=== PATIENT | female | born 1935 | race Caucasian/White ===

== ENCOUNTER 2017-02-28 21:31 | Emergency (ER) | payer MEDICARE ==
[~2017-02-28] VITALS: Ht 154.9 cm; Wt 48.1 kg
[2017-02-28] MEDS ORDERED: POTASSIUM CL 10MEQ ER TABLETS (22:04)
[2017-02-28] MEDS ORDERED: AMLODIPINE BESYLATE 5MG TABLET (22:04)
[2017-02-28] MEDS ORDERED: PROAIR HFA ORAL INH (200 PFS) (22:04)
[2017-02-28] MEDS ORDERED: HYDROCODONE/ACETAMINOPHEN 10-3 (22:04)
--- NOTE | 2017-03-01 01:51 | NUR ---
Patient discharged to home in stable conditon. Written and verbal after care instructions given. Patient verbalizes understanding of instructions.
== END 2017-03-01 01:52 | disposition home or self-care (01) ==
LOC: ER 21:38
DX: S42.292A Other displaced fracture of upper end of left humerus, initial encounter for closed fracture (principal); S93.402A Sprain of unspecified ligament of left ankle, initial encounter; I10 Essential (primary) hypertension; J44.9 Chronic obstructive pulmonary disease, unspecified; G56.03 Carpal tunnel syndrome, bilateral upper limbs; W18.30XA Fall on same level, unspecified, initial encounter; Y93.89 Activity, other specified; Y92.9 Unspecified place or not applicable; Y99.9 Unspecified external cause status
CPT/HCPCS: 71010; 72100; 72170; 73020; 73130; 73610; 73630; A4663

== ENCOUNTER 2023-05-13 21:58 | Inpatient (IN) | payer MEDICARE ==
[~2023-05-13] VITALS: Ht 154.9 cm; Wt 47.6 kg
[~2023-05-13 21:58] MED LIST: AMLODIPINE BESYLATE 5MG TABLET; HYDROCODONE/ACETAMINOPHEN 10-3; POTASSIUM CL 10MEQ ER TABLETS; PROAIR HFA ORAL INH (200 PFS)
[2023-05-13] MEDS ORDERED: methylPREDNISolone SOD SUCC 125 MG/2 ML VIAL IV ONE (22:30)
[2023-05-13] MEDS ORDERED: ALBUTEROL SULFATE 2.5 MG/3 ML NEBU NEB ONE (22:30)
[2023-05-13] MEDS ORDERED: IPRATROPIUM BROMIDE 0.5 MG/2.5 ML NEBU NEB ONE (22:30)
[2023-05-13] MEDS ORDERED: IPRATROPIUM BROMIDE 0.5 MG/2.5 ML NEBU ONE (22:31)
[2023-05-13] MEDS ORDERED: ALBUTEROL SULFATE 2.5 MG/3 ML NEBU ONE (22:31)
[2023-05-13 22:35] VITALS: O2SAT 98
[2023-05-13] MEDS ORDERED: methylPREDNISolone SOD SUCC 125 MG/2 ML VIAL ONE (22:43)
[2023-05-13] MEDS ORDERED: levoFLOXacin 750 MG/D5W 150 ML PIGGYBACK IV ONE (22:45)
[2023-05-13 22:49] LABS: ABG BASE EXCESS 2.4 mmol/L (-2.0-2.0); ABG HCO3 25.1 mmol/L (22.0-26.0); ABG PCO2 33.6 mmHg (35.0-48.0); ABG PH 7.491 (7.340-7.440); ABG SITE RIGHT RADIAL; ABG TOTAL HEMOGLOBIN 15.9 G/dL (12.0-16.0); AaDO2 99.6 mmHg; COHb 1.1 % (0.0-3.9); MetHb 0.2 % (0.0-1.5); O2Hb 98.5 % (94.0-97.0)
[2023-05-13] MEDS ORDERED: levoFLOXacin 750MG/D5W 150 ML IV ONE (22:50)
[2023-05-13] MEDS ORDERED: GABA300T25 PO (22:51)
[2023-05-13] MEDS ORDERED: ROSU5TAB PO (22:51)
[2023-05-13] MEDS ORDERED: MELO-105 PO (22:51)
[2023-05-13] MEDS ORDERED: HYDR-3980 PO (22:51)
[2023-05-13] MEDS ORDERED: MONT4GRA2 PO (22:51)
[2023-05-13] MEDS ORDERED: CYAN100T44 IJ (22:51)
[2023-05-13 23:05] LABS: CALCIUM 9.1 mg/dL (8.5-10.1); CARBON DIOXIDE 28 mmol/L (21-32); CHLORIDE 95 mmol/L (98-107); CREATININE 0.9 mg/dL (0.6-1.3); GLUCOSE 136 mg/dL (74-106); POTASSIUM 4.3 mmol/L (3.5-5.1); SODIUM SERUM 133 mmol/L (136-145); UREA NITROGEN, BLOOD 17 mg/dL (7-18)
[2023-05-13 23:06] LABS: BASOPHILS % (AUTO) 0.3 % (0.0-2.0); DIFFERENTIAL COMMENT 0; HEMATOCRIT 44.6 % (31.2-41.9); HEMOGLOBIN 15.2 g/dL (10.9-14.3); LYMPHOCYTES # (AUTO) 0.5 K/uL (0.8-4.8); LYMPHOCYTES % (AUTO) 4.8 % (20.5-51.5); MEAN CORPUSCULAR HEMOGLOBIN 31.3 uug (24.7-32.8); MEAN CORPUSCULAR HGB CONC 34 g/dL (32.3-35.6); MONOCYTES # (AUTO) 1.3 K/uL (0.1-1.30); MONOCYTES % (AUTO) 13.6 % (0.0-11.0); NEUTROPHILS # (AUTO) 7.9 K/uL (1.8-8.9); NEUTROPHILS % (AUTO) 81.3 % (38.5-71.5); PLATELET COUNT (AUTO) 300 K/uL (179-408); RED BLOOD CELL COUNT(AUTO) 4.85 MIL/uL (3.63-4.92); RED CELL DISTRIBUTION WIDTH 13.3 % (12.3-17.7); WHITE BLOOD COUNT (AUTO) 9.7 K/uL (3.8-11.8)
[2023-05-13 23:10] VITALS: O2SAT 99
[2023-05-13] MEDS ORDERED: ENOXAPARIN SODIUM 40 MG/0.4 ML DISP.SYRIN SQ ONE ×2 (23:15→23:38)
[2023-05-13 23:18] LABS: ALANINE AMINOTRANSFERASE 20 U/L (14-59); ALKALINE PHOSPHATASE 125 U/L (50-136); ASPARTATE AMINOTRANSFERASE 32 U/L (15-37); BILIRUBIN,DIRECT 0.5 mg/dL (0.0-0.2); NT-PRO BNP 1054 pg/mL (0-125)
[2023-05-13 23:35] VITALS: O2SAT 99
[2023-05-14] MEDS ORDERED: ACETAMINOPHEN 325 MG TABLET PO PRN (00:15)
[2023-05-14] MEDS ORDERED: ALBUTEROL SULFATE 8 GM HFA.AER.AD IH PRN (00:15)
[2023-05-14] MEDS ORDERED: ONDANSETRON 4 MG/2 ML VIAL IV PRN (00:15)
[2023-05-14] MEDS ORDERED: HYDROCODONE/APAP 10-325 MG TABLET ONE ×2 (00:39→00:43)
[2023-05-14] MEDS ORDERED: HYDROCODONE/APAP 10-325 MG TABLET PO ONE ×2 (00:45)
[2023-05-14] MEDS ORDERED: MORPHINE SULFATE 2 MG/1 ML DISP.SYRIN ONE (08:52)
[2023-05-14] MEDS: MORPHINE SULFATE 2 MG/1 ML DISP.SYRIN IVP PRN (08:56)
[2023-05-14] MEDS ORDERED: CEFTRIAXONE 1 G in IV DEXTROSE 5% 50 ML IV SCH (09:15)
[2023-05-14] MEDS ORDERED: AZITHROMYCIN IV 500 MG in IV DEXTROSE 5% 250 ML IV SCH (09:15)
[2023-05-14] MEDS ORDERED: HEPARIN SODIUM,PORCINE 5,000 UNITS/ML VIAL ONE (09:18)
[2023-05-14] MEDS ORDERED: DEXAMETHASONE SOD PHOSPHATE 10 MG INJ ONE (09:19)
[2023-05-14] MEDS ORDERED: AZITHROMYCIN 500MG/ D5W 250ML IVPB **ER PYXIS ONLY IV ONE (09:19)
[2023-05-14] MEDS ORDERED: CEFTRIAXONE /D5W 50ML IVPB **ER PYXIS IV ONE (09:19)
[2023-05-14] MEDS: DEXAMETHASONE SOD PHOSPHATE 4 MG INJ IV SCH (09:33)
[2023-05-14] MEDS: HEPARIN SODIUM,PORCINE 5,000 UNITS/ML VIAL SQ SCH ×2 (09:33→20:38)
[2023-05-14 12:17] VITALS: BP 152/88; TEMP 98.7; O2SAT 98
[2023-05-14] MEDS: FLUTICASONE/VILANTEROL 1 EACH BLST.W.DEV INH SCH (14:37)
[2023-05-14 17:57] VITALS: BP 164/95; TEMP 98.2; O2SAT 98
[2023-05-14] MEDS ORDERED: HOME MED MISCELLANEOUS XX SCH (18:45)
[2023-05-14] MEDS: IV D5/ 0.9% NACL 1,000 ML IV SCH (18:48)
[2023-05-14] MEDS ORDERED: POLYVINYL ALCOHOL OPHT DROPS 15 ML BOTTLE EACHEYE PRN (19:00)
[2023-05-14] MEDS: GABAPENTIN 100 MG CAPSULE PO SCH (19:15)
[2023-05-14] MEDS: MONTELUKAST SODIUM 10 MG TABLET PO SCH (19:16)
[2023-05-14] MEDS: hydrALAZINE HCL 20 MG/1 ML VIAL IV PRN (19:17)
[2023-05-14 20:18] VITALS: BP 171/89; TEMP 97.8; O2SAT 92
[2023-05-14] MEDS: ATORVASTATIN 20 MG TABLET PO SCH (20:37)
[2023-05-14] MEDS ORDERED: REMDESIVIR (CHARGED) 200 MG in IV NORMAL SALINE 210 ML IV ONE (21:00)
[2023-05-15] VITALS (7 sets, daily range): BP systolic 125–160; BP diastolic 42–90; TEMP 97.2–97.8; O2SAT 90–99
[2023-05-15] MEDS: hydrALAZINE HCL 20 MG/1 ML VIAL IV PRN (05:57)
[2023-05-15 07:07] LABS: BASOPHILS % (AUTO) 0.2 % (0.0-2.0); DIFFERENTIAL COMMENT 0; HEMATOCRIT 42.9 % (31.2-41.9); HEMOGLOBIN 14.6 g/dL (10.9-14.3); LYMPHOCYTES # (AUTO) 0.8 K/uL (0.8-4.8); LYMPHOCYTES % (AUTO) 6.1 % (20.5-51.5); MEAN CORPUSCULAR HEMOGLOBIN 30.9 uug (24.7-32.8); MEAN CORPUSCULAR HGB CONC 34 g/dL (32.3-35.6); MEAN CORPUSCULAR VOLUME 90.7 fL (75.5-95.3); MONOCYTES # (AUTO) 1.2 K/uL (0.1-1.30); MONOCYTES % (AUTO) 10.1 % (0.0-11.0); NEUTROPHILS # (AUTO) 10.3 K/uL (1.8-8.9); NEUTROPHILS % (AUTO) 83.6 % (38.5-71.5); PLATELET COUNT (AUTO) 332 K/uL (179-408); RED BLOOD CELL COUNT(AUTO) 4.72 MIL/uL (3.63-4.92); RED CELL DISTRIBUTION WIDTH 13.1 % (12.3-17.7); WHITE BLOOD COUNT (AUTO) 12.4 K/uL (3.8-11.8)
[2023-05-15 07:27] LABS: ALANINE AMINOTRANSFERASE 55 U/L (14-59); ALBUMIN 2.5 g/dL (3.4-5.0); ALKALINE PHOSPHATASE 125 U/L (50-136); ASPARTATE AMINOTRANSFERASE 68 U/L (15-37); BILIRUBIN,TOTAL 0.3 mg/dL (0.2-1.0); CALCIUM 8.9 mg/dL (8.5-10.1); CARBON DIOXIDE 29 mmol/L (21-32); CHLORIDE 101 mmol/L (98-107); CREATININE 0.7 mg/dL (0.6-1.3); GLUCOSE 172 mg/dL (74-106); MAGNESIUM 2.4 mg/dL (1.8-2.4); PHOSPHOROUS 1.8 mg/dL (2.5-4.9); POTASSIUM 3.3 mmol/L (3.5-5.1); SODIUM SERUM 139 mmol/L (136-145); TOTAL PROTEIN, SERUM 7.2 g/dL (6.4-8.2); UREA NITROGEN, BLOOD 19 mg/dL (7-18)
[2023-05-15] MEDS: MELOXICAM 7.5 MG TABLET PO PRN (09:12)
[2023-05-15] MEDS: AMLODIPINE 5 MG TABLET PO SCH (09:12)
[2023-05-15] MEDS: GABAPENTIN 100 MG CAPSULE PO SCH ×3 (09:12→18:03)
[2023-05-15] MEDS: MORPHINE SULFATE 2 MG/1 ML DISP.SYRIN IVP PRN (09:12)
[2023-05-15] MEDS: DEXAMETHASONE SOD PHOSPHATE 4 MG INJ IV SCH (09:13)
[2023-05-15] MEDS: HEPARIN SODIUM,PORCINE 5,000 UNITS/ML VIAL SQ SCH ×2 (09:15→23:09)
[2023-05-15] MEDS: FLUTICASONE/VILANTEROL 1 EACH BLST.W.DEV INH SCH (09:19)
[2023-05-15] MEDS: CEFTRIAXONE 1 G in IV DEXTROSE 5% 50 ML IV SCH (09:20)
[2023-05-15] MEDS: IV D5/ 0.9% NACL 1,000 ML IV SCH ×2 (12:43→23:53)
[2023-05-15] MEDS: AZITHROMYCIN IV 500 MG in IV DEXTROSE 5% 250 ML IV SCH (12:43)
[2023-05-15] MEDS ORDERED: POTASSIUM CHLORIDE 20 MEQ TAB.PRT.SR PO ONE (13:00)
[2023-05-15] MEDS ORDERED: NEUTRA PHOS PACKET PO ONE (17:00)
[2023-05-15] MEDS: MONTELUKAST SODIUM 10 MG TABLET PO SCH (18:02)
[2023-05-15] MEDS: HYDROCODONE/APAP 10-325 MG TABLET PO PRN (18:03)
[2023-05-15] MEDS: REMDESIVIR (CHARGED) 100 MG in IV NORMAL SALINE 100 ML IV SCH (23:08)
[2023-05-15] MEDS: ATORVASTATIN 20 MG TABLET PO SCH (23:09)
[2023-05-16] VITALS (11 sets, daily range): BP systolic 124–148; BP diastolic 64–75; TEMP 97.5–98.4; O2SAT 90–100
[2023-05-16] MEDS: MORPHINE SULFATE 2 MG/1 ML DISP.SYRIN IVP PRN (01:39)
[2023-05-16] MEDS: MELOXICAM 7.5 MG TABLET PO PRN (03:52)
[2023-05-16] MEDS: HYDROCODONE/APAP 10-325 MG TABLET PO PRN ×3 (03:52→18:59)
[2023-05-16] MEDS: ALBUTEROL SULFATE 2.5 MG/3 ML NEBU NEB PRN ×2 (05:24→10:14)
[2023-05-16] MEDS: IPRATROPIUM BROMIDE 0.5 MG/2.5 ML NEBU NEB PRN ×2 (05:24→10:14)
[2023-05-16 08:10] LABS: HEMATOCRIT 43.2 % (31.2-41.9); HEMOGLOBIN 14.6 g/dL (10.9-14.3); LYMPHOCYTES # (AUTO) 1.1 K/uL (0.8-4.8); LYMPHOCYTES % (AUTO) 7.8 % (20.5-51.5); MEAN CORPUSCULAR HEMOGLOBIN 30.7 uug (24.7-32.8); MEAN CORPUSCULAR HGB CONC 34 g/dL (32.3-35.6); MEAN CORPUSCULAR VOLUME 90.8 fL (75.5-95.3); MONOCYTES # (AUTO) 1.8 K/uL (0.1-1.30); MONOCYTES % (AUTO) 13.4 % (0.0-11.0); NEUTROPHILS # (AUTO) 10.8 K/uL (1.8-8.9); NEUTROPHILS % (AUTO) 78.8 % (38.5-71.5); PLATELET COUNT (AUTO) 374 K/uL (179-408); RED BLOOD CELL COUNT(AUTO) 4.75 MIL/uL (3.63-4.92); RED CELL DISTRIBUTION WIDTH 13.7 % (12.3-17.7); WHITE BLOOD COUNT (AUTO) 13.6 K/uL (3.8-11.8)
[2023-05-16 08:27] LABS: ALANINE AMINOTRANSFERASE 64 U/L (14-59); ALBUMIN 2.5 g/dL (3.4-5.0); ALKALINE PHOSPHATASE 125 U/L (50-136); ASPARTATE AMINOTRANSFERASE 51 U/L (15-37); BILIRUBIN,DIRECT 0.2 mg/dL (0.0-0.2); BILIRUBIN,TOTAL 0.3 mg/dL (0.2-1.0); CALCIUM 8.3 mg/dL (8.5-10.1); CARBON DIOXIDE 29 mmol/L (21-32); CHLORIDE 102 mmol/L (98-107); CREATININE 0.6 mg/dL (0.6-1.3); GLUCOSE 147 mg/dL (74-106); PHOSPHOROUS 1.5 mg/dL (2.5-4.9); POTASSIUM 2.9 mmol/L (3.5-5.1); SODIUM SERUM 140 mmol/L (136-145); TOTAL PROTEIN, SERUM 6.8 g/dL (6.4-8.2); UREA NITROGEN, BLOOD 19 mg/dL (7-18)
[2023-05-16 08:28] LABS: DIFFERENTIAL COMMENT 1
[2023-05-16] MEDS: CEFTRIAXONE 1 G in IV DEXTROSE 5% 50 ML IV SCH (09:42)
[2023-05-16] MEDS: GABAPENTIN 100 MG CAPSULE PO SCH ×3 (09:42→16:26)
[2023-05-16] MEDS: DEXAMETHASONE SOD PHOSPHATE 4 MG INJ IV SCH (09:42)
[2023-05-16] MEDS: AZITHROMYCIN IV 500 MG in IV DEXTROSE 5% 250 ML IV SCH (09:43)
[2023-05-16] MEDS: FLUTICASONE/VILANTEROL 1 EACH BLST.W.DEV INH SCH (09:44)
[2023-05-16] MEDS: HEPARIN SODIUM,PORCINE 5,000 UNITS/ML VIAL SQ SCH ×2 (09:44→21:39)
[2023-05-16] MEDS: AMLODIPINE 5 MG TABLET PO SCH (09:44)
[2023-05-16] MEDS ORDERED: POTASSIUM CHLORIDE 10 MEQ TAB.PRT.SR PO ONE (09:45)
[2023-05-16] MEDS: GUAIFENESIN/DEXTROMETHORPHAN 5 ML UDC PO PRN ×2 (10:26→18:59)
[2023-05-16] MEDS: ALBUTEROL SULFATE 1.25 MG/3 ML NEBU NEB SCH ×3 (11:30→19:42)
[2023-05-16] MEDS: IPRATROPIUM BROMIDE 0.5 MG/2.5 ML NEBU NEB SCH ×3 (11:30→19:42)
[2023-05-16] MEDS: IV D5/ 0.9% NACL 1,000 ML IV SCH (13:09)
[2023-05-16] MEDS ORDERED: POTASSIUM PHOSPHATE MM 15 MMOL in IV NORMAL SALINE 250 ML IV ONE (16:00)
[2023-05-16] MEDS: MONTELUKAST SODIUM 10 MG TABLET PO SCH (17:05)
[2023-05-16] MEDS: ATORVASTATIN 20 MG TABLET PO SCH (20:57)
[2023-05-16] MEDS: REMDESIVIR (CHARGED) 100 MG in IV NORMAL SALINE 100 ML IV SCH (20:58)
[2023-05-17] VITALS (12 sets, daily range): BP systolic 140–158; BP diastolic 81–90; TEMP 97.7–98.3; O2SAT 90–99
[2023-05-17] MEDS: GUAIFENESIN/DEXTROMETHORPHAN 5 ML UDC PO PRN (01:15)
[2023-05-17] MEDS: HYDROCODONE/APAP 10-325 MG TABLET PO PRN ×3 (01:15→20:34)
[2023-05-17] MEDS: MORPHINE SULFATE 2 MG/1 ML DISP.SYRIN IVP PRN (06:07)
[2023-05-17 06:54] LABS: BASOPHILS # (AUTO) 0.1 K/UL (0.0-0.2); BASOPHILS % (AUTO) 0.3 % (0.0-2.0); EOSINOPHILS # (AUTO) 0.1 K/uL (0.0-0.7); EOSINOPHILS % (AUTO) 0.4 % (0.0-7.0); HEMATOCRIT 43.9 % (31.2-41.9); HEMOGLOBIN 15.3 g/dL (10.9-14.3); LYMPHOCYTES # (AUTO) 2.3 K/uL (0.8-4.8); LYMPHOCYTES % (AUTO) 13.3 % (20.5-51.5); MEAN CORPUSCULAR HEMOGLOBIN 31.1 uug (24.7-32.8); MEAN CORPUSCULAR HGB CONC 35 g/dL (32.3-35.6); MEAN CORPUSCULAR VOLUME 89.5 fL (75.5-95.3); MONOCYTES % (AUTO) 11.6 % (0.0-11.0); NEUTROPHILS % (AUTO) 74.4 % (38.5-71.5); PLATELET COUNT (AUTO) 381 K/uL (179-408); RED BLOOD CELL COUNT(AUTO) 4.91 MIL/uL (3.63-4.92); RED CELL DISTRIBUTION WIDTH 13.6 % (12.3-17.7); WHITE BLOOD COUNT (AUTO) 17.5 K/uL (3.8-11.8)
[2023-05-17 07:14] LABS: DIFFERENTIAL COMMENT 1
[2023-05-17 07:23] LABS: ALANINE AMINOTRANSFERASE 53 U/L (14-59); ALBUMIN 2.6 g/dL (3.4-5.0); ALKALINE PHOSPHATASE 105 U/L (50-136); ASPARTATE AMINOTRANSFERASE 30 U/L (15-37); BILIRUBIN,DIRECT 0.2 mg/dL (0.0-0.2); BILIRUBIN,TOTAL 0.4 mg/dL (0.2-1.0); CALCIUM 8.5 mg/dL (8.5-10.1); CARBON DIOXIDE 29 mmol/L (21-32); CHLORIDE 100 mmol/L (98-107); CREATININE 0.6 mg/dL (0.6-1.3); GLUCOSE 102 mg/dL (74-106); MAGNESIUM 2.1 mg/dL (1.8-2.4); POTASSIUM 3.6 mmol/L (3.5-5.1); SODIUM SERUM 137 mmol/L (136-145); TOTAL PROTEIN, SERUM 6.7 g/dL (6.4-8.2); UREA NITROGEN, BLOOD 17 mg/dL (7-18)
[2023-05-17] MEDS: IPRATROPIUM BROMIDE 0.5 MG/2.5 ML NEBU NEB SCH ×4 (07:29→20:58)
[2023-05-17] MEDS: ALBUTEROL SULFATE 1.25 MG/3 ML NEBU NEB SCH ×4 (07:29→20:58)
[2023-05-17] MEDS: HEPARIN SODIUM,PORCINE 5,000 UNITS/ML VIAL SQ SCH ×2 (09:32→20:37)
[2023-05-17] MEDS: DEXAMETHASONE SOD PHOSPHATE 4 MG INJ IV SCH (09:32)
[2023-05-17] MEDS: GABAPENTIN 100 MG CAPSULE PO SCH ×3 (09:32→16:41)
[2023-05-17] MEDS: AZITHROMYCIN IV 500 MG in IV DEXTROSE 5% 250 ML IV SCH (09:34)
[2023-05-17] MEDS: CEFTRIAXONE 1 G in IV DEXTROSE 5% 50 ML IV SCH (09:34)
[2023-05-17] MEDS: AMLODIPINE 5 MG TABLET PO SCH (09:41)
[2023-05-17] MEDS: FLUTICASONE/VILANTEROL 1 EACH BLST.W.DEV INH SCH (09:42)
[2023-05-17 14:19] LABS: BAND % (MANUAL) 5 % (0-10); LYMPHOCYTES % (MANUAL) 17 % (20-40); MONOCYTES % (MANUAL) 12 % (2-10); NEUTROPHILS % (MANUAL) 66 % (42-75)
[2023-05-17 14:20] LABS: PLATELET ESTIMATE ADEQUATE
[2023-05-17] MEDS: GLUCERNA SHAKE 237 ML CAN PO SCH (16:41)
[2023-05-17] MEDS ORDERED: NEUTRA PHOS PACKET PO ONE (18:15)
[2023-05-17] MEDS: ATORVASTATIN 20 MG TABLET PO SCH (20:34)
[2023-05-17] MEDS: REMDESIVIR (CHARGED) 100 MG in IV NORMAL SALINE 100 ML IV SCH (20:34)
[2023-05-18] VITALS (7 sets, daily range): BP systolic 114–150; BP diastolic 68–90; TEMP 97.5–97.6; O2SAT 94–99
[2023-05-18] MEDS: HYDROCODONE/APAP 10-325 MG TABLET PO PRN ×3 (05:11→16:30)
[2023-05-18] MEDS: IPRATROPIUM BROMIDE 0.5 MG/2.5 ML NEBU NEB SCH ×3 (07:44→15:30)
[2023-05-18] MEDS: ALBUTEROL SULFATE 1.25 MG/3 ML NEBU NEB SCH ×3 (07:44→15:30)
[2023-05-18 07:46] LABS: BASOPHILS # (AUTO) 0.1 K/UL (0.0-0.2); BASOPHILS % (AUTO) 0.3 % (0.0-2.0); EOSINOPHILS % (AUTO) 0.1 % (0.0-7.0); HEMATOCRIT 44.1 % (31.2-41.9); HEMOGLOBIN 14.8 g/dL (10.9-14.3); LYMPHOCYTES # (AUTO) 2.8 K/uL (0.8-4.8); LYMPHOCYTES % (AUTO) 15.8 % (20.5-51.5); MEAN CORPUSCULAR HEMOGLOBIN 30.3 uug (24.7-32.8); MEAN CORPUSCULAR HGB CONC 34 g/dL (32.3-35.6); MONOCYTES # (AUTO) 1.8 K/uL (0.1-1.30); MONOCYTES % (AUTO) 10.6 % (0.0-11.0); NEUTROPHILS # (AUTO) 12.7 K/uL (1.8-8.9); NEUTROPHILS % (AUTO) 73.2 % (38.5-71.5); PLATELET COUNT (AUTO) 401 K/uL (179-408); RED CELL DISTRIBUTION WIDTH 13.6 % (12.3-17.7); WHITE BLOOD COUNT (AUTO) 17.4 K/uL (3.8-11.8)
[2023-05-18 07:52] LABS: DIFFERENTIAL COMMENT 1
[2023-05-18] MEDS ORDERED: PROTEIN SUPPLEMENT (PROSTAT) 30 ML LIQUID PO SCH (08:00)
[2023-05-18 08:21] LABS: PHOSPHOROUS 3.8 mg/dL (2.5-4.9)
[2023-05-18 08:27] LABS: ALBUMIN 2.3 g/dL (3.4-5.0); BILIRUBIN,DIRECT 0.1 mg/dL (0.0-0.2); BILIRUBIN,TOTAL 0.4 mg/dL (0.2-1.0); CREATININE 0.7 mg/dL (0.6-1.3); POTASSIUM 4.2 mmol/L (3.5-5.1); TOTAL PROTEIN, SERUM 6.3 g/dL (6.4-8.2)
[2023-05-18 08:55] LABS: CALCIUM 8.6 mg/dL (8.5-10.1)
[2023-05-18] MEDS: CEFTRIAXONE 1 G in IV DEXTROSE 5% 50 ML IV SCH (09:49)
[2023-05-18] MEDS: HEPARIN SODIUM,PORCINE 5,000 UNITS/ML VIAL SQ SCH (09:53)
[2023-05-18] MEDS: GABAPENTIN 100 MG CAPSULE PO SCH ×3 (09:54→16:30)
[2023-05-18] MEDS: DEXAMETHASONE SOD PHOSPHATE 4 MG INJ IV SCH (09:54)
[2023-05-18] MEDS: AMLODIPINE 5 MG TABLET PO SCH (09:54)
[2023-05-18] MEDS: FLUTICASONE/VILANTEROL 1 EACH BLST.W.DEV INH SCH (10:02)
[2023-05-18] MEDS: GLUCERNA SHAKE 237 ML CAN PO SCH ×2 (10:02→16:31)
[2023-05-18] MEDS: AZITHROMYCIN IV 500 MG in IV DEXTROSE 5% 250 ML IV SCH (11:18)
[2023-05-18] MEDS ORDERED: MONT10TA33 PO (13:59)
[2023-05-18] MEDS ORDERED: FLUT1BLS14 INH (13:59)
[2023-05-18] MEDS ORDERED: DEXA6TAB6 PO (13:59)
[2023-05-18] MEDS ORDERED: AZIT250T13 PO (13:59)
[2023-05-18] MEDS ORDERED: REMDESIVIR (CHARGED) 100 MG in IV NORMAL SALINE 100 ML IV SCH (16:00)
[2023-05-18] MEDS ORDERED: MONTELUKAST SODIUM 10 MG TABLET PO SCH (20:00)
== END 2023-05-18 19:03 | DRG 177 ==
LOC: ER 22:04 → TELE3 05-14 11:18
PROVIDERS: ADMIT Internal Medicine; ATTEND Nurse Practitioner Acute Care
PROC: XW033E5 Introduction of Remdesivir Anti-infective into Peripheral Vein, Percutaneous Approach, New Technology Group 5 (ICD-10-PCS; principal; 2023-05-14)
DX: U07.1 COVID-19 (principal); J12.82 Pneumonia due to coronavirus disease 2019; J15.9 Unspecified bacterial pneumonia; J96.01 Acute respiratory failure with hypoxia; E44.0 Moderate protein-calorie malnutrition; Z68.1 Body mass index [BMI] 19.9 or less, adult; E87.1 Hypo-osmolality and hyponatremia; J45.901 Unspecified asthma with (acute) exacerbation; E86.0 Dehydration; R79.1 Abnormal coagulation profile; E88.09 Other disorders of plasma-protein metabolism, not elsewhere classified; G89.4 Chronic pain syndrome; Z88.2 Allergy status to sulfonamides; M54.9 Dorsalgia, unspecified; M54.2 Cervicalgia; I70.0 Atherosclerosis of aorta; I10 Essential (primary) hypertension; M15.9 Polyosteoarthritis, unspecified; Z85.3 Personal history of malignant neoplasm of breast; Z87.891 Personal history of nicotine dependence; Z90.11 Acquired absence of right breast and nipple
CPT/HCPCS: 36415; 36600; 70030-TC; 71045; 83735; 84100; 84484; 85025; 85610; 85730; 86140; 87040; 93005; 94640; A4606; A4663; G0378; J0248; J0360; J0456; J0696; J1100; J1644; J1650; J1956; J2270; J2930; J3490; J3535; J3590; J7040; J7042; J7050